=== PATIENT | female | born 1940 | race Caucasian/White ===

== ENCOUNTER 2017-02-15 10:53 | Emergency (ER) | payer OTHER ==
[~2017-02-15] VITALS: Ht 175.3 cm; Wt 96.0 kg
[~2017-02-15 10:53] MED LIST: CILOXAN 0.1 APPLICAT BOTH EYES; CILOXAN 0.100 DROP/5 BOTH EYES; CIPRO500 MG PO; COLACE100 MG PO; COUMADIN4 MG PO; COUMADIN5 MG PO; COUMADIN7.5 MG PO; FLAGYL500 MG PO; FLORASTOR250 MG PO; HYDROCODON-ACE1 EAC7 PO; LO-DOSE ASPIRIN81 M1 PO; LOPRESSOR25 MG PO; LOVENOX100 MG/1 M SC; MACROBID100 MG PO; METOPROLOL TART25 MG PO; NORCO 5/3251 TABLET PO; OMEPRAZOLE40 M1 PO; OXYCODONE HCL5 MG PO; TYLENOL EXTRA500 MG PO; ULTRAM50 MG PO; WARFARIN SODIUM3 MG PO; WARFARIN SODIUM6 MG PO; ZITHROMAX Z-PA250 MG PO; ZOFRAN4 MG PO
[2017-02-15] MEDS ORDERED: ULTRAM50 MG PO (11:54)
[2017-02-15 12:21] VITALS: BP 134/82
== END 2017-02-15 12:22 | disposition home or self-care (01) ==
LOC: EME 10:53
DX: S93.402A Sprain of unspecified ligament of left ankle, initial encounter (principal); X50.1XXA Overexertion from prolonged static or awkward postures, initial encounter; Z88.2 Allergy status to sulfonamides
CPT/HCPCS: 73610; 99281; 99284